=== PATIENT | male | born 1950 | race Caucasian/White ===

== ENCOUNTER 2019-04-21 12:02 | Emergency (ER) | payer MEDICARE, BC, SELFPAY ==
[2019-04-21] MEDS: TETANUS,DIPHTHERIA,AC PERTUSSIS ADULT 0.5 ML (ADACEL) IM (12:19)
[2019-04-21 12:28] VITALS: BP 155/89; PULSE 61; RESP 15; TEMP 36.6; O2SAT 97
[2019-04-21 12:54] VITALS: RESP 17
--- NOTE | 2019-04-21 13:32 | ED.WOUNDLAC ---
HPI - Wound/Laceration General Chief Complaint: Wound/Laceration Stated Complaint: cut hand Time Seen by Provider: 04/21/19 12:15 Source: patient Mode of arrival: ambulatory Limitations: no limitations History of Present Illness HPI narrative: Navarro is a very pleasant 68-year-old male patient. 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 He fell down on a pitch fork. He sustained a laceration to the left hypothenar area. This is 3 cm long vertical laceration. There is no distal CSM defect. It was a clean patient for work and there is no dirt in the wound. He was able to control the bleeding with pressure and he came to the ER. No other injuries. No other complaints. Onset (ago): minute(s) ( [employer]) Location: other ( left hypothenar area) Extremity Location: Left: hand Place: home Patient tetanus UTD: No Context: accidental Associated symptoms: none Treatments prior to arrival: other ( applied pressure) Related Data Home Medications Medication Instructions Recorded Confirmed atorvastatin 20 mg PO DAILY 04/21/19 04/21/19 escitalopram oxalate 10 mg PO DAILY 04/21/19 04/21/19 lisinopril 20 mg PO DAILY 04/21/19 04/21/19 omeprazole 40 mg PO DAILY 04/21/19 04/21/19 pramipexole 2.5 mg PO DAILY 04/21/19 04/21/19 Allergies Allergy/AdvReac Type Severity Reaction Status Date / Time No Known Allergies Allergy Verified 04/21/19 12:31 Review of Systems Review of Systems: All systems reviewed & are unremarkable except as noted in HPI and below Constitutional: Constitutional: Reports as per HPI, Reports no additional constitutional complaints, Denies chills and Denies fever(s) Eyes: Eyes: Reports as per HPI, Reports no additional eye complaints and Denies change in vision ENT: Reports system reviewed and no additional complaints, except as documented, Reports as per HPI, Denies epistaxis and Denies sore throat Cardiovascular: Cardiovascular: Reports as per HPI, Reports no additional cardiovascular complaints, Denies chest pain and Denies radiating jaw, neck or arm pain Respiratory: Respiratory: Reports as per HPI, Reports no additional respiratory complaints, Denies cough and Denies dyspnea Gastrointestinal: Gastrointestinal: Reports as per HPI, Reports no additional gastrointestinal complaints, Denies abdominal pain, Denies nausea and Denies vomiting Genitourinary: Genitourinary: Reports no additional male genitourinary complaints, Denies hematuria and Denies dysuria Musculoskeletal: Musculoskeletal: Reports no additional musculoskeletal complaints and Denies back pain Integumentary/Breasts: Skin/Breast: Reports system reviewed and no additional complaints, except as docu Comments: laceration left hypothenar area Neurologic: Reports system reviewed and no additional complaints, except as documented and Reports as per HPI Comments: Navarro has history of Parkinson's disease Psychiatric: Psychiatric: Reports no additional psychiatric complaints, Reports as per HPI and Denies anxiety Endocrine: Endocrine: Reports no additional endocrine complaints, Reports as per HPI and Denies polydipsia Hematologic/Lymphatic: Hematologic/Lymphatic: Reports no additional hematologic/lymphatic complaints, Denies easy bleeding and Denies easy bruising Allergic/Immunologic: Allergic/Immunologic: Reports no additional allergic/immunologic complaints, Reports as per HPI, Denies lip swelling and Denies tongue swelling PMFSH Past Medical History Medical History (Updated 04/21/19 @ 13:42 by Anmol Arora MD) History of Parkinson's disease Surgical History Surgical History (Updated 04/21/19 @ 13:37 by Anmol Arora MD) Status post deep brain stimulator placement Social History Social History (Updated 04/21/19 @ 13:37 by Anmol Arora MD) Additional smoking assessment comments: does not smoke Alcohol use details: does not use alcohol Substance use: never Exam Const: General: healthy appearing, no acu
== END 2019-04-21 12:55 | disposition home or self-care (01) ==
PROVIDERS: Emergency Provider Surgery; PCP Family Medicine
DX: S61.412A Laceration without foreign body of left hand, initial encounter (principal); G20 Parkinson's disease; W45.8XXA Other foreign body or object entering through skin, initial encounter
CPT/HCPCS: 12002; 90471; 90715; 99282

== ENCOUNTER 2022-06-10 10:41 | Outpatient (RCR) | payer MEDICARE, BC, SELFPAY ==
--- NOTE | 2022-06-10 11:41 | PTOPEVAL1 ---
Assessment and note entered by JT File, PT Evaluation Information Assessment Status Evaluation Diagnosis lumbar radiculopathy Onset 06/03/22 Subjective Information patient reports he has been having an acute flare up of pain in the lower back and down the L LE for the past 2-3 months. he reports no injury, no fall, and no change in activity that brought about his pain. he reports he now leans to the side all the time, and has severe pain in the lower back and the L LE. he reports he has no had any surgery , but reports he is trying injections to the lower back. he reports he has had to stop playing golf, and has had to take a lot longer and suffer increased pain with home and yard work. he reports he has also had to limit his walking distance due to pain. Reported Pain Level Pain Score 6: Self Report Assessment PT Clinical Summary mr. camargo is a 71 yo man who presents to skilled PT for evaluation and treatment of lower back pain. he presents with a significant acute scoliosis and flare up of pain. he is limited in rom, flexibility, strength, core stability, and functional activity performance including gait. he would benefit from continued skilled PT to improve his quality of life and return to full prior level functional activity performance. Plan of Care Interventions Gait Training,Hot Pack/Cold Pack,Manual Therapy, Neuro Re-education,Patient/Caregiver Educati, Therapeutic Activities,Therapeutic Exercise PT Services Indicated Yes Treatment Frequency and 3x weekly for 12 visits Duration These treatments will address the objective and functional deficits as defined above. The patient will be advanced safely and appropriately in order for the patient to progress towards his/her prior level of function. Additional exercises will be introduced and as well as a comprehensive home exercise program upon discharge, if needed, ?to ensure carryover of functional gains achieved in the clinic. This treatment plan has been reviewed and agreement upon by the patient.
== END 2022-06-30 14:54 | disposition home or self-care (01) ==
LOC: CHSPT 10:41
PROVIDERS: PCP Family Medicine
DX: M54.16 Radiculopathy, lumbar region (principal)
CPT/HCPCS: 97110; 97140; 97162; 97530

== ENCOUNTER 2022-08-17 14:45 | Outpatient (RCR) | payer MEDICARE, BC, SELFPAY ==
--- NOTE | 2022-08-17 16:00 | PTOPEVAL1 ---
Assessment and note entered by Drew Calvo Evaluation Information Assessment Status Evaluation Diagnosis lumbar radiculopathy, s/p lumbar laminectomy L1-L3 Onset 07/02/22 Subjective Information Pt. reports that he underwent back surgery on 07/02. He reports that he can walk a little better since surgery. He does notice that he leans to the left in standing, which concerns him. He reports that he can currently walk about 15 minutes before having to sit. He states his inability to walk a significant distance is his biggest concern. He states that all his pain is located on the left side of the back and increases with long periods of standing. He reports that his goal remains to decrease his low back pain. Reported Pain Level Pain Score 4: Self Report Assessment PT Clinical Summary Pt. is a 71 year old male who enters the clinic s/ p lumbar surgery. He presents with impaired l.e. strength, impaired endurance, impaired gait, impaired postural awareness, pain and functional decline. Continued skilled PT is indicated in order to improve these areas to allow for improved IADL performance. Plan of Care Interventions Electrical Stimulation,Hot Pack/Cold Pack,Manual Therapy,Neuro Re-education,Patient/Caregiver Educati,Therapeutic Activities,Therapeutic Exercise,Self-Care/Home Management PT Services Indicated Yes Treatment Frequency and 3x/week x 12 visits Duration These treatments will address the objective and functional deficits as defined above. The patient will be advanced safely and appropriately in order for the patient to progress towards his/her prior level of function. Additional exercises will be introduced and as well as a comprehensive home exercise program upon discharge, if needed, ?to ensure carryover of functional gains achieved in the clinic. This treatment plan has been reviewed and agreement upon by the patient.
--- NOTE | 2022-08-17 16:01 | OPREHPOC ---
Outpatient Therapy Plan of Care This is a Multidisciplinary Plan of Care that may contain components documented by all disciplines (PT, OT, and ST.) PT Problem 1 PT Problem #1 Knowledge Deficit PT Goal 1 Goal Pt. will be independent with a HEP addressing strength and mobility Target Visit 2 PT Problem 2 PT Problem #2 Impaired Gait PT Goal 1 Goal Pt. will complete the 6 minute walk test over a distance of 800-1000' without rest with equal right and left stance time Target Visit 12 PT Problem 3 PT Problem #3 Impaired Endurance PT Goal 1 Goal Pt. will be able to stand for 30-45 minutes without rest in order to complete IADL's Target Visit 12 PT Problem 4 PT Problem #4 Impaired Strength PT Goal 1 Goal Pt. will demonstrate 4+/5 gross l.e. strength Target Visit 6 PT Goal 2 Goal Pt. will increase gross l.e. strength in order to improve postural awareness with standing activities Target Visit 12
--- NOTE | 2022-09-08 10:03 | PTOPEVAL1 ---
Assessment and note entered by Drew Calvo Evaluation Information Assessment Status Progress Diagnosis lumbar radiculopathy, s/p lumbar laminectomy L1-L3 Onset 07/02/22 Subjective Information Pt. reports that he was doing better until about 3 days ago. He reports that he was getting into bed and twisted his back. He describes increased pain at the left side lumbar paraspinals. He reports that he has had a small amount of improvement since beginning therapy. He notes that he would like to be able to stand longer Reported Pain Level Pain Score 5: Self Report Assessment PT Clinical Summary Pt. has attended a total of 10 treatment sessions. He demonstrates progress in regards to strength and functional mobility. Despite this progress he still remains limited in regards to standing endurance. At this time recommend continued skilled PT in order to improve proximal l.e. strength to continue to improve standing endurance . Plan of Care Interventions Gait Training,Hot Pack/Cold Pack,Manual Therapy, Therapeutic Activities,Therapeutic Exercise PT Services Indicated Yes Treatment Frequency and 2x/week x 6 visits Duration These treatments will address the objective and functional deficits as defined above. The patient will be advanced safely and appropriately in order for the patient to progress towards his/her prior level of function. Additional exercises will be introduced and as well as a comprehensive home exercise program upon discharge, if needed, ?to ensure carryover of functional gains achieved in the clinic. This treatment plan has been reviewed and agreement upon by the patient.
--- NOTE | 2022-09-24 10:10 | OPREHPOC ---
Outpatient Therapy Plan of Care This is a Multidisciplinary Plan of Care that may contain components documented by all disciplines (PT, OT, and ST.) PT Problem 1 PT Problem #1 Knowledge Deficit PT Goal 1 Goal Pt. will be independent with a HEP addressing strength and mobility Target Visit 2 Progress Met PT Problem 2 PT Problem #2 Impaired Gait PT Goal 1 Goal Pt. will complete the 6 minute walk test over a distance of 800-1000' without rest with equal right and left stance time Target Visit 12 Progress Partially Met Comment Still note slightly decreased left stance time compared to the right. PT Problem 3 PT Problem #3 Impaired Endurance PT Goal 1 Goal Pt. will be able to stand for 30-45 minutes without rest in order to complete IADL's Target Visit 12 Progress Partially Met PT Problem 4 PT Problem #4 Impaired Strength PT Goal 1 Goal Pt. will demonstrate 4+/5 gross l.e. strength Target Visit 6 Progress Partially Met PT Goal 2 Goal Pt. will increase gross l.e. strength in order to improve postural awareness with standing activities Target Visit 12 Progress Partially Met
--- NOTE | 2022-09-24 10:10 | PTOPDC ---
Assessment and note entered by Tori Turner DPT Evaluation Information Assessment Status Re-evaluation Diagnosis lumbar radiculopathy, s/p lumbar laminectomy L1-L3 Onset 07/02/22 Subjective Information Patient reports pain in his lower back at the beginning of today's session, he notes that it was initially only on the left side this morning but has since spread to the right as well. He visited the surgeon yesterday, who suggested patient continue exercises with no future plans of surgery at this time. He notes an overall improvement in pain since starting physical therapy, noting it did reach 7/10 while perform heavy activities at home. He states he believes the exercises have helped his strength and endurance, however he still has difficulty standing or walking for time periods greater than 15 minutes. He feels confident with performing exercises as home to maintain his current level of functioning. Reported Pain Level Pain Score 4: Self Report Assessment PT Clinical Summary Mr. Velasquez has attended 16 visits of skilled PT to address lumbar radiculopathy and s/p lumbar laminectomy L1-L3. He has made good progress towards goals, demonstrating improved overall LE strength and flexibility. Patient increased distance ambulated with 6 minute walk test, but continues to demonstrate a slight difference in stance time between sides as well as a Left trendelenberg. He reports a decrease in intensity and frequency of overall pain since initiating physical therapy, allowing him to return to more daily activities in the home. At this time, patient is to be discharged from skilled therapy with independent HEP. Plan of Care PT Services Indicated No
== END 2022-09-24 10:21 | disposition home or self-care (01) ==
LOC: CHSPT 14:45
DX: Z47.89 Encounter for other orthopedic aftercare (principal); M54.16 Radiculopathy, lumbar region
CPT/HCPCS: 97110; 97112; 97140; 97161; 97750

== ENCOUNTER 2022-10-15 11:49 | Emergency (ER) | payer MEDICARE, BC, SELFPAY ==
--- NOTE | ~2022-10-15 | CT_ITS ---
EXAMINATION: CT abd pelvis lumbar wo con DATE: 10/15/2022 12:40 INDICATION: Low back pain, left inguinal hernia TECHNIQUE: Computed tomography (CT) of the abdomen and pelvis and lumbar spine was performed without intravenous contrast. The dose-length product (DLP) was 923.01 mGy-cm. Automated exposure control and iterative reconstruction technique were employed. COMPARISON: None FINDINGS: Abdomen and pelvis: Minimal dependent atelectasis is present in the lung bases. The heart size is nor mal. Cysts of the liver measure up to 1.5 cm in the right hepatic lobe. An 8 mm hypoattenuating area in the spleen likely reflects a cyst or lymphangioma. The pancreas, gallbladder, and adrenal glands a re normal. Nonobstructing stones of the right kidney measure up to 2 mm. Nonobstructing stones of the left kidney measure up to 4 mm. No stones are present in the ureters or bladder. No hydronephrosis o r hydroureter. There is calcified atherosclerosis of the aorta and many of the other arteries. No pat hologically enlarged abdominal or pelvic lymph nodes are identified. There is a left inguinal hernia containing a short segment of nonobstructed colon. There is a right inguinal hernia containing fat. Lumbar spine: Bone alignment is normal. No lumbar spine fracture is identified. There is severe loss of intervertebral disc space height at L4-5 and L1-2. There is moderate loss of disc space height in the remainder of the lumbar spine. The lumbar vertebral body heights are maintained. There is mild an terior wedging the visualized lower thoracic spine. There is moderate bilateral neuroforaminal stenos is at L4-5. IMPRESSION: 1. Bilateral nonobstructing nephrolithiasis. 2. Severe lumbar spondylosis without acute findings. 3. Left inguinal hernia containing a short segment of nonobstructed colon. Reviewed, dictated and finalized at location L.
[2022-10-15 11:49] VITALS: BP 136/75; PULSE 84; RESP 16; TEMP 36.9; O2SAT 100
[2022-10-15] MEDS: KETOROLAC 30 MG/ML VIAL (*BKC) IM (12:28)
[2022-10-15 12:33] LABS: Appearance Urine Clear (Clear); Bilirubin Urine Negative (Negative); Blood Urine Negative (Negative); Color Urine Light Yellow (Yellow); Glucose Urine UA Negative (Negative); Ketones Urine Negative (Negative); Leukocyte Esterase Ur Negative LEU/UL (Negative); Nitrate Urine Negative (Negative); Protein Urine Negative (Negative); Urobilinogen Urine 0.2 mg/dL (0.2-1.0)
[2022-10-15 12:47] LABS: Add Urine Microscopic? NO
--- NOTE | 2022-10-15 13:12 | ED.BACK ---
HPI - Back Pain/Injury General Chief Complaint: Back Pain/Injury Stated Complaint: back pain Time Seen by Provider: 10/15/22 11:54 Source: patient Mode of arrival: ambulatory Limitations: no limitations History of Present Illness HPI Narrative: this is a 71-year-old male that presents with low back pain radiating to his right lower leg and left lower extremity left greater than right with no saddle paresthesias patient is complaining of a bulge in his left inguinal region but currently no abdominal pain no dysuria no flank pain no fever chills. Patient had no injuries but does have a history of low back pain history of laminectomy in the lumbar region. There is no fever chills no nausea vomiting no chest pain no shortness of breath. MD elicited complaint: back pain Pertinent past history: prior back pain Onset (ago): day(s) Timing: constant Severity: moderate Pain scale (0-10): 7 Similar Symptoms Previously: Yes Related Data Home Medications Medication Instructions Recorded Confirmed atorvastatin 20 mg tablet 20 mg PO DAILY 04/21/19 04/21/19 escitalopram oxalate 10 mg tablet 10 mg PO DAILY 04/21/19 04/21/19 lisinopril 20 mg tablet 20 mg PO DAILY 04/21/19 04/21/19 omeprazole 40 mg capsule,delayed 40 mg PO DAILY 04/21/19 04/21/19 release pramipexole 2.25 mg 2.5 mg PO DAILY 04/21/19 04/21/19 tablet,extended release 24 hr Allergies Allergy/AdvReac Type Severity Reaction Status Date / Time No Known Allergies Allergy Verified 04/21/19 12:31 Review of Systems Review of Systems: All systems reviewed & are unremarkable except as noted in HPI and below PMFSH Past Medical History Medical History History of Parkinson's disease Surgical History Surgical History Status post deep brain stimulator placement Social History Social History Additional smoking assessment comments: does not smoke Alcohol use details: does not use alcohol Substance use: never Exam Const: General: healthy appearing Nutritional Appearance: well nourished Orientation/consciousness: patient oriented x3 Limitations: no limitations Neck: Neck: normal visual inspection Chest: Chest palpation & inspection: normal inspection of the chest Resp: Effort & Inspection: normal respiratory effort Auscultation: clear to auscultation bilaterally Cardio: Rate: regular rate Rhythm: regular rhythm GI: GI Palp: Yes Soft to palpation Auscultation: normal bowel sounds : General: Yes bladder normal to palpation Back/Spine/Pelvis: Back: no CVA tenderness Skin: General skin exam: normal color Rashes: no rashes Wounds: no wounds Neuro: General: patient oriented x3, moves all extremities, no meningeal signs and no focal motor deficits Extrem: General: normal to inspection Psych: Mental Status: mental status grossly normal Affect: normal affect Course Course Emergency Course: Patient received IM Toradol and patient pain level after reassessment has improved, CT scan of his lumbar and abdomen and pelvis were reviewed with patient which shows no acute findings in the lumbar region, his abdominal CT did show that he has a nonobstructing a fat containing left inguinal hernia. Vital Signs Vital signs: Vital Signs Temperature 36.9 C 10/15/22 11:49 Pulse Rate 84 10/15/22 11:49 Respiratory Rate 16 10/15/22 11:49 Blood Pressure 136/75 10/15/22 11:49 Pulse Oximetry 100 10/15/22 11:49 Oxygen Delivery Room Air 10/15/22 11:49 Temperature 36.9 C 10/15/22 11:49 Pulse Rate 84 10/15/22 11:49 Respiratory Rate 16 10/15/22 11:49 Blood Pressure 136/75 10/15/22 11:49 Pulse Oximetry 100 10/15/22 11:49 Oxygen Delivery Room Air 10/15/22 11:49 MDM - Back Pain/Injury Lab Data Labs: Lab Results 10/15/22 Range/Units 12:23
[2022-10-15 13:24] VITALS: BP 122/54; PULSE 77; RESP 18; TEMP 37.2; O2SAT 94
== END 2022-10-15 13:31 | disposition home or self-care (01) ==
PROVIDERS: Emergency Provider Emergency Medicine; PCP Family Medicine
DX: M54.16 Radiculopathy, lumbar region (principal); K40.90 Unilateral inguinal hernia, without obstruction or gangrene, not specified as recurrent; S39.012A Strain of muscle, fascia and tendon of lower back, initial encounter; M54.32 Sciatica, left side; G20 Parkinson's disease; X58.XXXA Exposure to other specified factors, initial encounter
CPT/HCPCS: 72131; 74176; 81003; 96372; 99284; J1885